=== PATIENT | female | born 1985 | race African-American/Black ===

== ENCOUNTER 2021-04-18 04:20 | Emergency (ER) | payer SELFPAY ==
[~2021-04-18] VITALS: Ht 160 cm; Wt 50.0 kg
--- NOTE | 2021-04-18 04:26 | PHYS DOC ---
Past History Past Medical History: Alcoholism (SUDHA JAIMES MD) Smoking: Cigarettes (SUDHA JAIMES MD) General Adult HPI: HPI: ".. I am going to fucking kill him or my self.. fucking .. he going to make me fucking crazy...".." Fucking cause me to go fucking group home.." Patient is a 36 year old female who presents with above hx and complaints of suicidal ideation and homicidal ideation. Patient PD referral from her apartment because of intoxication and threats of homicidal and suicidal ideation. Patient does admit she is homicidal and suicidal. Does state she wants to kill her significant other. Patient has no definitive plan for suicide attempt. Patient does admit to heavy alcohol use today. No recent travel. No sick ill contacts. Patient is very agitated and at times very difficult to be cooperative with nursing and medical staff. Patient does have past history of anxiety, depression, polysubstance abuse. (SUDHA JAIMES MD) Review of Systems: Review of Systems: Constitutional: Denies fever or chills Eyes: Denies change in visual acuity HENT: Denies nasal congestion or sore throat Respiratory: Denies cough or shortness of breath Cardiovascular: Denies chest pain or edema GI: Denies abdominal pain, nausea, vomiting, bloody stools or diarrhea : Denies dysuria Musculoskeletal: Denies back pain or joint pain Integument: Denies rash Neurologic: Denies headache, focal weakness or sensory changes Endocrine: Denies polyuria or polydipsia Lymphatic: Denies swollen glands Psychiatric: Complains of suicidal homicidal ideation (SUDHA JAIMES MD) Family History: Family History: Noncontributory to presentation (SUDHA JAIMES MD) Current Medications: Current Meds: See nursing for home meds (SUDHA JAIMES MD) Allergies: Allergies: Allergic to strawberries (SUDHA JAIMES MD) Physical Exam: PE: Constitutional: In acute emotional distress, very intoxicated in appearance. [] HENT: Normocephalic, atraumatic, bilateral external ears normal, oropharynx moist, no oral exudates, nose normal. Poor dentition Eyes: PERRLA, EOMI, conjunctiva injected, no discharge. [] Neck: Normal range of motion, no tenderness, supple, no stridor. [] Cardiovascular: Tachycardia heart rate regular rhythm, no murmur [] Lungs & Thorax: Bilateral breath sounds equal apex with scattered wheezes on auscultation [] Abdomen: Bowel sounds decreased, soft, no tenderness, no masses, no pulsatile masses. [] Skin: Warm, dry, no erythema, no rash. [] Back: No tenderness, no CVA tenderness. [] Extremities: No tenderness, no cyanosis, no clubbing, ROM intact, no edema. [] Neurologic: Alert and oriented X 3, moving all extremities on request, does have distal sensory, no focal deficits noted. Discoordination. Wide gait. DTRs +2 patella and brachial. Psychologic: Affect anxious, angry, threatening, judgement impaired, mood depressed. Frequently crying and and threatening at times. (SUDHA JAIMES MD) EKG: EKG: My interpretation EKG shows a sinus rhythm at 75 bpm. There is some contour changes and the anterior septal leads. No findings of acute STEMI of contralateral changes. Time of EKG is 533 hours .[] (SUDHA JAIMES MD) Radiology/Procedures: Radiology/Procedures: [] (SUDHA JAIMES MD) Heart Score: C/O Chest Pain: N/A HEART Score for Chest Pain: HEART Score for Chest Pain Response (Comments) Value History Slighlty/Non-Suspicious 0 ECG Normal 0 Age < 45 0 Risk Factors 1 or 2 Risk Factors 1 Troponin < Normal Limit 0 Total 1 Risk Factors: Risk Factors: DM, Current or recent (<one month) smoker, HTN, HLP, family history of CAD, obesity. Risk Scores: Score 0 - 3: 2.5% MACE over next 6 weeks - Discharge Home Score 4 - 6: 20.3% MACE over next 6 weeks - Admit for Clinical Observation Score 7 - 10: 72.7% MACE over next 6 weeks - Early Invasive Strategies (SUDHA JAIMES MD) Course & Med Decision Making: Course & Med Decision Making Pertinent Labs and Imaging studies reviewed. (See chart for details) Pt. Endorsed to Dr. Gonzales at shift change. UDS pending. Impression: 1. Homicidal ideation 2. Suicidal ideation 3. Alcohol intoxication = 201 4. Hypokalemia mild 3.2 [] (SUDHA JAIMES MD) Course & Med Decision Making I assumed care of patient after comprehensive signout from off going physician. I reviewed comprehensive ER work-up concerning for alcohol and illicit drug abuse and personally saw patient repeating aspects of history and physical exam. No SI and/or HI reported to myself Behavioral health professional saw patient after she was medically cleared and decision was made that she did not need to be transferred for inpatient psychiatric care, I agree to this assessment. Joint decision among all to discharge home with safety plan in place and drug cessation (MILKA GONZALES DO) Dragon Disclaimer: Dragon Disclaimer: This electronic medical record was generated, in whole or in part, using a voice recognition dictation system. (SUDHA JAIMES MD) Departure Departure: Impression: Primary Impression: Violent behavior Additional Impressions: Illicit drug use Alcohol abuse Disposition: 01 HOME / SELF CARE / HOMELESS Condition: STABLE Additional Instructions: As discussed prior to ER departure, your vitals, physical exam and comprehensive ER work-up were nonconcerning for any emergent or surgical issues. You were seen and evaluated by our mental health professional and joint decision among all to discharge you home with safety plan in place. Please adhere to this fully and ensure close outpatient follow-up with primary care and mental health providers. Cessation of alcohol and other illicit drug use is also advised. If any concerning signs or symptoms or thoughts of harming self or others arise prior to outpatient follow-up, please do not hesitate to come back for repeat evaluation. It was a pleasure to take care of you and I wish you the best going forward Dragon Disclaimer This chart was dictated in whole or in part using Voice Recognition software in a busy, high-work load, and often noisy Emergency Department environment. It may contain unintended and wholly unrecognized errors or omissions. (SUDHA JAIMES MD) Dragon Disclaimer This chart was dictated in whole or in part using Voice Recognition software in a busy, high-work load, and often noisy Emergency Department environment. It may contain unintended and wholly unrecognized errors or omissions. (SUDHA JAIMES MD) SUDHA JAIMES MD Apr 18, 2021 04:26 MILKA GONZALES DO Apr 18, 2021 12:33
[2021-04-18] MEDS ORDERED: IV RINGERS SOLUTION,LACTATED 1,000 ML IV SCH (04:45)
[2021-04-18 05:09] VITALS: BP 150/88
[2021-04-18 05:13] LABS: BASO % 1 % (0-3); EOS # 0.1 x10^3/uL (0.0-0.7); EOS % 2 % (0-3); HEMATOCRIT 39.9 % (36.0-47.0); HEMOGLOBIN 13.1 g/dL (12.0-15.5); LYMPH % 30 % (24-48); MEAN CORPUSCULAR HEMOGLOBIN 29 pg (25-35); MEAN CORPUSCULAR HGB CONC 33 g/dL (31-37); MEAN CORPUSCULAR VOLUME 90 fL (79-100); MONO # 0.5 x10^3/uL (0.0-1.1); MONO % 7 % (0-9); NEUT % 60 % (31-73); PLATELET COUNT 328 x10^3/uL (140-400); RED BLOOD COUNT 4.44 x10^6/uL (3.50-5.40); RED CELL DISTRIBUTION WIDTH 15.3 % (11.5-14.5); WHITE BLOOD COUNT 6.7 x10^3/uL (4.0-11.0)
[2021-04-18 05:19] LABS: CALCIUM 8.3 mg/dL (8.5-10.1); CREATININE 0.7 mg/dL (0.6-1.0); GFR 94.7; POTASSIUM 3.2 mmol/L (3.5-5.1)
[2021-04-18 05:33] LABS: DIRECT BILIRUBIN 0.1 mg/dL (0.0-0.2); MAGNESIUM 2.3 mg/dL (1.8-2.4); TOTAL BILIRUBIN 0.4 mg/dL (0.2-1.0); TOTAL PROTEIN 7.5 g/dL (6.4-8.2)
[2021-04-18 06:11] LABS: BARBITURATES NEG (NEG); BENZODIAZEPINES NEG (NEG); CANNABINOIDS POS (NEG); COCAINE NEG (NEG); METHADONE NEG (NEG); OPIATES NEG (NEG); PHENCYCLIDINE NEG (NEG)
[2021-04-18 06:18] LABS: AMPHETAMINE/METHAMPHETAMINE POS (NEG)
[2021-04-18 06:23] LABS: COLOR,URINE YELLOW
[2021-04-18 06:24] LABS: BILIRUBIN,URINE NEG (NEG); CLARITY,URINE HAZY; GLUCOSE,URINE NEG (NEG)
[2021-04-18 06:25] LABS: NITRITE,URINE NEG (NEG); UROBILINOGEN,URINE 0.2 mg/dL (0.2 mg/dL)
[2021-04-18 06:26] LABS: BACTERIA,URINE 0 /HPF (0-FEW); RBC,URINE OCC /HPF (0-2); SQUAMOUS EPITHELIAL CELL,UR FEW /LPF
--- NOTE | 2021-04-18 06:56 | EKG ---
[address] [address] Test Date: 2021-04-18 Test Time: 05:33:05 Pat Name: YESY DIAL Department: Room: Gender: F [employer] Ambassador: LAYNE : 1985 Requested By: SUDHA JAIMES Order Number: [id number] Reading MD: Darci Briones MD Measurements Intervals [place] Rate: 75 P: 90 AK: 190 QRS: 66 QRSD: 70 T: 63 QT: 370 QTc: 416 Interpretive Statements SINUS ARRHYTHMIA SEPTAL INFARCT PATTERN Electronically Signed On 04-20-2021 9:43:22 [employer] by Darci Briones MD
[2021-04-18] MEDS ORDERED: POTASSIUM CHLORIDE 20 MEQ TABLET.ER. PO ONE ×2 (07:15→11:24)
== END 2021-04-18 12:57 | disposition home or self-care (01) ==
LOC: EEVIPCON 04:20 → ER 04:20
DX: R45.851 Suicidal ideations (principal); R45.850 Homicidal ideations; E87.6 Hypokalemia; R45.6 Violent behavior; F10.229 Alcohol dependence with intoxication, unspecified; F17.210 Nicotine dependence, cigarettes, uncomplicated; Z20.822 Contact with and (suspected) exposure to COVID-19; Z91.018 Allergy to other foods; Y90.7 Blood alcohol level of 200-239 mg/100 ml
CPT/HCPCS: 80048; 80076; 80307; 81001; 81025; 82550; 83690; 83735; 83880; 84443; 84484; 85025; 85610; 87086; 87426; 93005; 96360; 96361; 99285; G0480; J7120; U0003